=== PATIENT | female | born 1955 | race Two or more races ===

== ENCOUNTER 2017-01-03 11:26 | Inpatient (IN) | payer BC ==
[~2017-01-03] VITALS: Ht 160 cm; Wt 77.8 kg
[~2017-01-03 11:26] MED LIST: AMLO10TA2 PO; ASPI81CH43 PO; ATOR80TA PO; CITA-77 PO; DOXA1TAB42; FENO48TA6 PO; FURO40TA4; GABA300C8 PO; Glyburide; LISI-646; METO25TA62; PANTOPRAZOLE
[2017-01-03 12:03] LABS: Basophils # (auto) 0 uL; Basophils % (auto) 0.4 % (0.0-2.0); Eosinophils # (auto) 0.1 uL; Eosinophils % (auto) 1.3 % (0.0-7.0); Hematocrit 29.3 % (36.0-46.0); Hemoglobin 9.6 g/dL (12.2-16.2); Lymphocytes # (auto) 1.2 uL; Lymphocytes % (auto) 9.7 % (10.0-50.0); Mean Corpuscular Hemoglobin 28.9 pg (28.0-32.0); Mean Corpuscular Hgb Conc. 32.7 g/dL (32.0-36.0); Mean Corpuscular Volume 88.4 fL (80.0-100.0); Mean Platelet Volume 6.7 fL (7.4-10.4); Monocytes # (auto) 0.7 uL; Neutrophils # (auto) 9.8 uL; Neutrophils % (auto) 82.6 % (37.0-80.0); Platelet Count (auto) 223 10^3/uL (140-450); Red Cell Distribution Width 17.4 % (11.6-16.0); White Blood Cell 11.9 10^3/uL (4.4-10.8)
[2017-01-03 12:24] LABS: Albumin 2.9 g/dL (3.4-5.0); BUN/Creatinine Ratio 6.1; Bilirubin, Total 0.5 mg/dL (0.2-1.0); Calcium 9.1 mg/dL (8.5-10.1); Magnesium 2.3 mg/dL (1.6-2.6); Potassium 4.5 mmol/L (3.5-5.1); Total Protein 6.8 g/dL (6.4-8.2)
[2017-01-03 13:20] LABS: B-Type Natriuretic Peptide 3946.46 pg/mL (0-100)
[2017-01-03 13:21] LABS: Temperature: 22.7 C (20.0-25.0)
[2017-01-03] MEDS ORDERED: ALBUTEROL SULF 2.5 MG/0.5ML(0.5%) NEB SOLN NEB PRN (13:30)
[2017-01-03] MEDS ORDERED: ACETAMINOPHEN 500 MG TAB PO PRN (13:30)
[2017-01-03] MEDS ORDERED: hydrALAZINE HCL 20 MG/ML VL IV PRN (13:30)
[2017-01-03] MEDS ORDERED: MORPHINE SULF INJ 2 MG/ML SYRINGE 1ML IV PRN (13:30)
[2017-01-03] MEDS ORDERED: TEMAZEPAM 15 MG CAP PO PRN (13:30)
[2017-01-03] MEDS ORDERED: DEXTROSE (50%) 50ML SYRG IV PRN (13:30)
[2017-01-03] MEDS ORDERED: LACTULOSE 20Gm/30ML SOLN PO PRN (13:30)
[2017-01-03] MEDS ORDERED: PROCHLORPERAZINE EDISYLATE 5 MG/ML 2ML VIAL IV PRN (13:30)
[2017-01-03] MEDS ORDERED: NITROGLYCERIN 0.4 MG SL TAB SL PRN (13:30)
[2017-01-03] MEDS ORDERED: LORazepam 0.5 MG TAB PO PRN (13:30)
[2017-01-03] MEDS ORDERED: LISINOPRIL 20 MG TAB PO ONE (13:45)
[2017-01-03] MEDS ORDERED: hydrALAZINE HCL 20 MG/ML VL IV ONE (13:45)
[2017-01-03] MEDS ORDERED: ASPirin 81 mg TAB PO ONE (13:45)
[2017-01-03] MEDS ORDERED: amLODIPine BESYLATE 5 MG TAB PO ONE (13:45)
[2017-01-03] MEDS ORDERED: METOPROLOL TARTRATE 25 MG TAB PO ONE (13:45)
[2017-01-03] MEDS ORDERED: METOPROLOL TARTRATE 50 MG TAB PO ONE (13:45)
[2017-01-03] MEDS ORDERED: cloNIDine HCL 0.1 MG TAB PO ONE (13:45)
[2017-01-03] MEDS: cefTRIAXone 1GM/50ML D5W 50 ML IV SCH (13:54)
[2017-01-03] MEDS: ENOXAPARIN SOD 30 MG/0.3 ML SYRINGE SC SCH (13:55)
[2017-01-03] MEDS: NITROGLYCERIN 0.2MG/HR TOPICAL PATCH TD SCH (13:56)
[2017-01-03] MEDS ORDERED: GABAPENTIN 300 MG CAP PO SCH (14:00)
[2017-01-03] MEDS ORDERED: FUROSEMIDE 40 MG/4 ML VIAL IV SCH (14:00)
[2017-01-03] MEDS: NITROGLYCERIN 50MG/250ML 250 ML IV SCH ×2 (14:30→14:45)
[2017-01-03] MEDS ORDERED: NITROGLYCERIN 50MG/250ML 250 ML IV ONE (14:30)
[2017-01-03] MEDS ORDERED: NITROGLYCERIN 0.4 MG SL TAB SL ONE (14:30)
[2017-01-03] MEDS: AZITHROMYCIN 500MG/D5W 250ML 250 ML IV SCH (14:56)
[2017-01-03] MEDS: MORPHINE SULF INJ 2 MG/ML SYRINGE 1ML IV PRN (15:22)
[2017-01-03] MEDS ORDERED: EPOETIN ALFA 3,000 UNIT/1 ML VIAL SC ONE (16:00)
[2017-01-03] MEDS ORDERED: EPOETIN ALFA 3,000 UNIT/1 ML VIAL ONE (16:23)
[2017-01-03] MEDS ORDERED: EPOETIN ALFA 2,000 UNIT/1 ML VIAL ONE (16:23)
[2017-01-03] MEDS ORDERED: SODIUM CHL 0.9% 1000 ML BAG XX ONE (17:00)
[2017-01-03] MEDS ORDERED: EPOETIN ALFA 10,000 UNIT/1 ML VIAL IV ONE (17:00)
[2017-01-03] MEDS: InsuLIN REG 1unit/0.01ml Soln (100units/ml) SC SCH ×2 (17:00→23:07)
[2017-01-03] MEDS: ACCU-CHEK COMFORT CURVE STRIP VI SCH ×2 (17:10→23:08)
[2017-01-03] MEDS: IPRATROPIUM BROM 0.5 MG/2.5ML INH SOL NEB SCH (18:00)
[2017-01-03] MEDS: ALBUTEROL SULF 2.5 MG/0.5ML(0.5%) NEB SOLN NEB SCH (18:00)
[2017-01-03 19:58] VITALS: BP 183/80
[2017-01-03] MEDS: ATORVASTATIN 20 MG TAB PO SCH (23:20)
[2017-01-03] MEDS: DOXAZOSIN MESYL 2 MG TAB PO SCH (23:25)
[2017-01-03] MEDS: METOPROLOL TARTRATE 25 MG TAB PO SCH (23:25)
[2017-01-03] MEDS: TEMAZEPAM 15 MG CAP PO PRN (23:30)
[2017-01-04] VITALS (63 sets, daily range): BP systolic 141–217; BP diastolic 52–106
[2017-01-04] MEDS: HYDROcodone-ACET 5/325MG TAB PO PRN ×3 (02:55→18:22)
[2017-01-04 05:58] LABS: Basophils # (auto) 0 uL; Basophils % (auto) 0.7 % (0.0-2.0); DEFINITIVE VIEW TRANSMISSION; Eosinophils # (auto) 0.1 uL; Eosinophils % (auto) 1.4 % (0.0-7.0); Hematocrit 24.7 % (36.0-46.0); Lymphocytes # (auto) 1.1 uL; Mean Corpuscular Hgb Conc. 32.5 g/dL (32.0-36.0); Mean Platelet Volume 6.9 fL (7.4-10.4); Monocytes # (auto) 0.7 uL; Monocytes % (auto) 11.2 % (0.0-12.0); Neutrophils # (auto) 4.1 uL; Neutrophils % (auto) 68.7 % (37.0-80.0); Platelet Count (auto) 174 10^3/uL (140-450); Red Cell Distribution Width 17.5 % (11.6-16.0); White Blood Cell 5.9 10^3/uL (4.4-10.8)
[2017-01-04] MEDS: InsuLIN REG 1unit/0.01ml Soln (100units/ml) SC SCH ×4 (06:39→21:08)
[2017-01-04] MEDS: LISINOPRIL 20 MG TAB PO SCH (06:40)
[2017-01-04] MEDS: ACCU-CHEK COMFORT CURVE STRIP VI SCH ×4 (06:40→21:09)
[2017-01-04 06:45] LABS: Albumin 2.5 g/dL (3.4-5.0); BUN/Creatinine Ratio 5.2; Bilirubin, Total 0.6 mg/dL (0.2-1.0); Calcium 8.2 mg/dL (8.5-10.1); Potassium 3.9 mmol/L (3.5-5.1); Total Protein 5.8 g/dL (6.4-8.2)
[2017-01-04] MEDS: ALBUTEROL SULF 2.5 MG/0.5ML(0.5%) NEB SOLN NEB SCH ×3 (06:55→19:18)
[2017-01-04] MEDS: IPRATROPIUM BROM 0.5 MG/2.5ML INH SOL NEB SCH ×3 (06:56→19:18)
[2017-01-04] MEDS: cefTRIAXone 1GM/50ML D5W 50 ML IV SCH (09:22)
[2017-01-04] MEDS: NITROGLYCERIN 50MG/250ML 250 ML IV SCH ×2 (09:47→23:50)
[2017-01-04] MEDS: ENOXAPARIN SOD 30 MG/0.3 ML SYRINGE SC SCH (10:00)
[2017-01-04] MEDS ORDERED: ASPirin 81 mg TAB PO SCH (10:00)
[2017-01-04] MEDS ORDERED: PANTOPRAZOLE 40 MG TAB PO SCH (10:00)
[2017-01-04] MEDS ORDERED: hydrALAZINE HCL 25 MG TAB PO PRN (10:15)
[2017-01-04] MEDS: GABAPENTIN 300 MG CAP PO SCH (10:23)
[2017-01-04] MEDS: ASPirin 81 mg TAB PO SCH (10:23)
[2017-01-04] MEDS: CITALOPRAM HYDROBR 20 MG TAB PO SCH (10:23)
[2017-01-04] MEDS: NITROGLYCERIN 0.2MG/HR TOPICAL PATCH TD SCH (10:23)
[2017-01-04] MEDS: amLODIPine BESYLATE 5 MG TAB PO SCH (10:24)
[2017-01-04] MEDS: METOPROLOL TARTRATE 25 MG TAB PO SCH ×2 (10:24→21:08)
[2017-01-04] MEDS: AZITHROMYCIN 500MG/D5W 250ML 250 ML IV SCH (11:34)
[2017-01-04] MEDS: hydrALAZINE HCL 25 MG TAB PO SCH ×3 (12:11→23:40)
[2017-01-04] MEDS ORDERED: SODIUM CHLORIDE 0.9 % NEB SOLN 3ML NEB ONE (13:18)
[2017-01-04] MEDS ORDERED: CARV25TA55 PO (16:09)
[2017-01-04] MEDS ORDERED: LOSA100T27 PO (16:09)
[2017-01-04] MEDS ORDERED: CLO01T PO (16:09)
[2017-01-04] MEDS ORDERED: CALC0.25 PO (16:09)
[2017-01-04] MEDS ORDERED: POTA10TA79 PO (16:09)
[2017-01-04] MEDS ORDERED: MET50T PO (16:09)
[2017-01-04] MEDS ORDERED: HYDR-3682 PO (16:09)
[2017-01-04] MEDS ORDERED: HYDR-2652 PO (16:09)
[2017-01-04] MEDS ORDERED: NIFE90TA30 PO (16:09)
[2017-01-04] MEDS ORDERED: FURO80TA3 PO (16:09)
[2017-01-04] MEDS ORDERED: PRED1PAK10 PO (16:09)
[2017-01-04] MEDS: DOXAZOSIN MESYL 2 MG TAB PO SCH (21:08)
[2017-01-04] MEDS: ATORVASTATIN 20 MG TAB PO SCH (21:08)
[2017-01-04] MEDS: metroNIDAZOLE 500 MG TAB PO SCH (21:08)
[2017-01-04] MEDS: diphenhdrAMINE HCL 50 MG/1 ML VL IV PRN (22:10)
[2017-01-04] MEDS: TEMAZEPAM 15 MG CAP PO PRN (22:11)
[2017-01-05] VITALS (94 sets, daily range): BP systolic 87–193; BP diastolic 23–123
[2017-01-05] MEDS: ALBUTEROL SULF 2.5 MG/0.5ML(0.5%) NEB SOLN NEB SCH ×4 (00:31→18:35)
[2017-01-05] MEDS: IPRATROPIUM BROM 0.5 MG/2.5ML INH SOL NEB SCH ×4 (00:31→18:35)
[2017-01-05] MEDS: MORPHINE SULF INJ 2 MG/ML SYRINGE 1ML IV PRN ×3 (01:06→23:16)
[2017-01-05 04:25] LABS: Basophils # (auto) 0 uL; Basophils % (auto) 0.5 % (0.0-2.0); DEFINITIVE VIEW TRANSMISSION; Eosinophils # (auto) 0.5 uL; Eosinophils % (auto) 6.2 % (0.0-7.0); Hematocrit 23.2 % (36.0-46.0); Hemoglobin 7.5 g/dL (12.2-16.2); Lymphocytes # (auto) 1.7 uL; Lymphocytes % (auto) 21.3 % (10.0-50.0); Mean Corpuscular Hemoglobin 28.7 pg (28.0-32.0); Mean Corpuscular Hgb Conc. 32.5 g/dL (32.0-36.0); Mean Corpuscular Volume 88.2 fL (80.0-100.0); Mean Platelet Volume 7.6 fL (7.4-10.4); Monocytes # (auto) 0.9 uL; Monocytes % (auto) 11.4 % (0.0-12.0); Neutrophils # (auto) 4.9 uL; Neutrophils % (auto) 60.6 % (37.0-80.0); Platelet Count (auto) 180 10^3/uL (140-450); Red Cell Distribution Width 16.9 % (11.6-16.0); White Blood Cell 8.1 10^3/uL (4.4-10.8)
[2017-01-05 04:27] LABS: BUN/Creatinine Ratio 6.6; Potassium 3.8 mmol/L (3.5-5.1)
[2017-01-05] MEDS: InsuLIN REG 1unit/0.01ml Soln (100units/ml) SC SCH ×4 (05:27→22:00)
[2017-01-05] MEDS: ACCU-CHEK COMFORT CURVE STRIP VI SCH ×4 (05:27→22:28)
[2017-01-05] MEDS: hydrALAZINE HCL 25 MG TAB PO SCH ×3 (06:23→17:02)
[2017-01-05] MEDS: LISINOPRIL 20 MG TAB PO SCH (06:23)
[2017-01-05] MEDS: metroNIDAZOLE 500 MG TAB PO SCH ×3 (06:23→22:00)
[2017-01-05] MEDS: cefTRIAXone 1GM/50ML D5W 50 ML IV SCH (08:33)
[2017-01-05] MEDS: AZITHROMYCIN 500MG/D5W 250ML 250 ML IV SCH (09:30)
[2017-01-05] MEDS: ASPirin 81 mg TAB PO SCH (09:30)
[2017-01-05] MEDS: ENOXAPARIN SOD 30 MG/0.3 ML SYRINGE SC SCH (09:30)
[2017-01-05] MEDS: amLODIPine BESYLATE 5 MG TAB PO SCH (09:31)
[2017-01-05] MEDS: GABAPENTIN 300 MG CAP PO SCH (09:31)
[2017-01-05] MEDS: METOPROLOL TARTRATE 25 MG TAB PO SCH ×3 (09:32→23:28)
[2017-01-05] MEDS: CITALOPRAM HYDROBR 20 MG TAB PO SCH (09:32)
[2017-01-05] MEDS: NITROGLYCERIN 0.2MG/HR TOPICAL PATCH TD SCH (09:52)
[2017-01-05] MEDS: HYDROcodone-ACET 5/325MG TAB PO PRN ×2 (16:28)
[2017-01-05] MEDS ORDERED: ASCORBIC ACID 500 MG TAB PO ONE (16:30)
[2017-01-05] MEDS ORDERED: B-COMPLEX W/ C & FOLIC ACID(NEPHROVITE TAB) PO ONE (16:30)
[2017-01-05] MEDS: PRO-STAT 64 30ML PO SCH (17:45)
[2017-01-05] MEDS: ATORVASTATIN 20 MG TAB PO SCH (22:27)
[2017-01-05] MEDS: DOXAZOSIN MESYL 2 MG TAB PO SCH (22:27)
[2017-01-06] VITALS (88 sets, daily range): BP systolic 113–191; BP diastolic 50–106
[2017-01-06] MEDS: NITROGLYCERIN 50MG/250ML 250 ML IV SCH ×3 (00:44→22:14)
[2017-01-06] MEDS: ALBUTEROL SULF 2.5 MG/0.5ML(0.5%) NEB SOLN NEB SCH ×4 (00:48→19:01)
[2017-01-06] MEDS: IPRATROPIUM BROM 0.5 MG/2.5ML INH SOL NEB SCH ×4 (00:48→19:01)
[2017-01-06 04:24] LABS: Basophils # (auto) 0.1 uL; Basophils % (auto) 0.5 % (0.0-2.0); DEFINITIVE VIEW TRANSMISSION; Eosinophils # (auto) 1.4 uL; Eosinophils % (auto) 14.8 % (0.0-7.0); Hematocrit 23.3 % (36.0-46.0); Hemoglobin 7.5 g/dL (12.2-16.2); Lymphocytes # (auto) 1.5 uL; Lymphocytes % (auto) 15.3 % (10.0-50.0); Mean Corpuscular Hemoglobin 28.5 pg (28.0-32.0); Mean Corpuscular Hgb Conc. 32.2 g/dL (32.0-36.0); Mean Corpuscular Volume 88.5 fL (80.0-100.0); Mean Platelet Volume 7.8 fL (7.4-10.4); Monocytes # (auto) 0.9 uL; Neutrophils # (auto) 5.9 uL; Neutrophils % (auto) 60.4 % (37.0-80.0); Platelet Count (auto) 179 10^3/uL (140-450); Red Cell Distribution Width 16.4 % (11.6-16.0); White Blood Cell 9.8 10^3/uL (4.4-10.8)
[2017-01-06 04:43] LABS: Potassium 4.3 mmol/L (3.5-5.1)
[2017-01-06 04:49] LABS: Calcium 8.1 mg/dL (8.5-10.1)
[2017-01-06] MEDS: LISINOPRIL 20 MG TAB PO SCH (05:51)
[2017-01-06] MEDS: metroNIDAZOLE 500 MG TAB PO SCH ×3 (05:51→21:53)
[2017-01-06] MEDS: hydrALAZINE HCL 25 MG TAB PO SCH ×5 (06:57→22:25)
[2017-01-06] MEDS: InsuLIN REG 1unit/0.01ml Soln (100units/ml) SC SCH ×4 (07:00→22:08)
[2017-01-06] MEDS: ACCU-CHEK COMFORT CURVE STRIP VI SCH ×4 (07:21→22:04)
[2017-01-06] MEDS ORDERED: EPOETIN ALFA 10,000 UNIT/1 ML VIAL IV ONE (08:00)
[2017-01-06] MEDS ORDERED: SODIUM CHL 0.9% 1000 ML BAG XX ONE (08:00)
[2017-01-06] MEDS: PRO-STAT 64 30ML PO SCH ×2 (08:26→17:46)
[2017-01-06] MEDS: ENOXAPARIN SOD 30 MG/0.3 ML SYRINGE SC SCH (09:24)
[2017-01-06] MEDS: ASPirin 81 mg TAB PO SCH (09:25)
[2017-01-06] MEDS: HYDROcodone-ACET 5/325MG TAB PO PRN (09:25)
[2017-01-06] MEDS: B-COMPLEX W/ C & FOLIC ACID(NEPHROVITE TAB) PO SCH (09:25)
[2017-01-06] MEDS: CITALOPRAM HYDROBR 20 MG TAB PO SCH (09:25)
[2017-01-06] MEDS: GABAPENTIN 300 MG CAP PO SCH (09:26)
[2017-01-06] MEDS: ASCORBIC ACID 500 MG TAB PO SCH (09:26)
[2017-01-06] MEDS: AMOXICILLIN/CLAVULAN 500 MG TAB PO SCH ×2 (10:00→21:53)
[2017-01-06] MEDS ORDERED: AMOXICILLIN/CLAVUL 875 MG TAB PO SCH (10:00)
[2017-01-06] MEDS: AZITHROMYCIN 250 MG TAB PO SCH (10:00)
[2017-01-06] MEDS: amLODIPine BESYLATE 5 MG TAB PO SCH (10:00)
[2017-01-06] MEDS: MORPHINE SULF INJ 2 MG/ML SYRINGE 1ML IV PRN ×2 (15:56→21:55)
[2017-01-06] MEDS: ATORVASTATIN 20 MG TAB PO SCH (21:52)
[2017-01-06] MEDS: METOPROLOL TARTRATE 25 MG TAB PO SCH (21:53)
[2017-01-06] MEDS: diphenhdrAMINE HCL 50 MG/1 ML VL IV PRN (21:56)
[2017-01-06] MEDS: DOXAZOSIN MESYL 2 MG TAB PO SCH (22:28)
[2017-01-07] VITALS (57 sets, daily range): BP systolic 83–185; BP diastolic 35–123
[2017-01-07] MEDS: HYDROcodone-ACET 5/325MG TAB PO PRN ×4 (00:43→22:22)
[2017-01-07] MEDS: TEMAZEPAM 15 MG CAP PO PRN (01:30)
[2017-01-07 03:53] LABS: DEFINITIVE VIEW TRANSMISSION; Hematocrit 27.4 % (36.0-46.0); Mean Corpuscular Hemoglobin 29.1 pg (28.0-32.0); Mean Corpuscular Hgb Conc. 32.9 g/dL (32.0-36.0); Mean Corpuscular Volume 88.4 fL (80.0-100.0); Mean Platelet Volume 7.7 fL (7.4-10.4); Platelet Count (auto) 189 10^3/uL (140-450); Red Cell Distribution Width 16.1 % (11.6-16.0); White Blood Cell 11.6 10^3/uL (4.4-10.8)
[2017-01-07 04:02] LABS: BUN/Creatinine Ratio 6.3; Potassium 4.4 mmol/L (3.5-5.1)
[2017-01-07 04:13] LABS: Metamyelocytes % 0; Myelocytes % 0; Promyelocytes % 0; Reactive Lymphocytes 0
[2017-01-07 04:38] LABS: Hypersegmented Neutrophils Present; Platelet Estimate Adequate; RBC Morphology Normal
[2017-01-07] MEDS: metroNIDAZOLE 500 MG TAB PO SCH ×3 (06:00→21:42)
[2017-01-07] MEDS: hydrALAZINE HCL 25 MG TAB PO SCH ×3 (06:00→17:40)
[2017-01-07] MEDS: ALBUTEROL SULF 2.5 MG/0.5ML(0.5%) NEB SOLN NEB SCH ×2 (06:30)
[2017-01-07] MEDS: IPRATROPIUM BROM 0.5 MG/2.5ML INH SOL NEB SCH ×2 (06:30)
[2017-01-07] MEDS: InsuLIN REG 1unit/0.01ml Soln (100units/ml) SC SCH ×4 (07:00→22:13)
[2017-01-07] MEDS: ACCU-CHEK COMFORT CURVE STRIP VI SCH ×4 (07:05→22:11)
[2017-01-07] MEDS: LISINOPRIL 20 MG TAB PO SCH (07:12)
[2017-01-07] MEDS: PRO-STAT 64 30ML PO SCH ×2 (09:01→17:38)
[2017-01-07] MEDS: CITALOPRAM HYDROBR 20 MG TAB PO SCH (10:08)
[2017-01-07] MEDS: B-COMPLEX W/ C & FOLIC ACID(NEPHROVITE TAB) PO SCH (10:08)
[2017-01-07] MEDS: ASPirin 81 mg TAB PO SCH (10:08)
[2017-01-07] MEDS: GABAPENTIN 300 MG CAP PO SCH (10:08)
[2017-01-07] MEDS: METOPROLOL TARTRATE 25 MG TAB PO SCH ×2 (10:09→22:14)
[2017-01-07] MEDS: ASCORBIC ACID 500 MG TAB PO SCH (10:09)
[2017-01-07] MEDS: AZITHROMYCIN 250 MG TAB PO SCH (10:09)
[2017-01-07] MEDS: amLODIPine BESYLATE 5 MG TAB PO SCH (10:10)
[2017-01-07] MEDS: ENOXAPARIN SOD 30 MG/0.3 ML SYRINGE SC SCH (10:10)
[2017-01-07] MEDS: AMOXICILLIN/CLAVULAN 500 MG TAB PO SCH ×2 (10:11→22:37)
[2017-01-07] MEDS ORDERED: [UNRECOGNIZED DRUG - OTHER] TOP SCH (12:00)
[2017-01-07] MEDS: NEOMYCIN-BACITRACIN-POLYM UNITDOSE PKG TOP OINT TOP SCH ×2 (13:21→17:56)
[2017-01-07] MEDS: HYDROCORTONE 1% TOPICAL CREAM 30 GM TUBE TOP SCH ×2 (13:21→17:39)
[2017-01-07] MEDS: LABETALOL HCL 5 MG/ML 4ML SYRINGE IV PRN (14:31)
[2017-01-07] MEDS: MORPHINE SULF INJ 2 MG/ML SYRINGE 1ML IV PRN (14:34)
[2017-01-07] MEDS ORDERED: diphenhdrAMINE HCL 25 MG CAP PO ONE (21:00)
[2017-01-07] MEDS: DOXAZOSIN MESYL 2 MG TAB PO SCH (21:42)
[2017-01-07] MEDS: ATORVASTATIN 20 MG TAB PO SCH (21:42)
[2017-01-08] MEDS: HYDROCORTONE 1% TOPICAL CREAM 30 GM TUBE TOP SCH ×4 (00:13→17:34)
[2017-01-08] MEDS: NEOMYCIN-BACITRACIN-POLYM UNITDOSE PKG TOP OINT TOP SCH ×4 (00:13→17:35)
[2017-01-08] MEDS: hydrALAZINE HCL 25 MG TAB PO SCH ×4 (00:13→17:34)
[2017-01-08 05:00] VITALS: BP 167/79
[2017-01-08] MEDS: LABETALOL HCL 5 MG/ML 4ML SYRINGE IV PRN (05:55)
[2017-01-08] MEDS: MORPHINE SULF INJ 2 MG/ML SYRINGE 1ML IV PRN ×3 (05:56→17:00)
[2017-01-08] MEDS: metroNIDAZOLE 500 MG TAB PO SCH ×3 (05:57→21:42)
[2017-01-08 05:59] LABS: DEFINITIVE VIEW TRANSMISSION; Hematocrit 30.5 % (36.0-46.0); Hemoglobin 9.9 g/dL (12.2-16.2); Mean Corpuscular Hgb Conc. 32.5 g/dL (32.0-36.0); Mean Corpuscular Volume 89.1 fL (80.0-100.0); Mean Platelet Volume 7.9 fL (7.4-10.4); Platelet Count (auto) 214 10^3/uL (140-450); Red Cell Distribution Width 16.6 % (11.6-16.0); White Blood Cell 10.5 10^3/uL (4.4-10.8)
[2017-01-08 06:02] LABS: Metamyelocytes % 0; Myelocytes % 0; Promyelocytes % 0; Reactive Lymphocytes 0
[2017-01-08 06:26] LABS: Potassium 4.6 mmol/L (3.5-5.1)
[2017-01-08 06:30] LABS: BUN/Creatinine Ratio 6.3; Calcium 8.6 mg/dL (8.5-10.1)
[2017-01-08 06:38] LABS: Hypersegmented Neutrophils Present; Platelet Estimate Adequate
[2017-01-08 06:39] LABS: RBC Morphology Normal
[2017-01-08] MEDS: ACCU-CHEK COMFORT CURVE STRIP VI SCH ×4 (06:43→22:00)
[2017-01-08] MEDS: InsuLIN REG 1unit/0.01ml Soln (100units/ml) SC SCH ×4 (06:43→22:39)
[2017-01-08] MEDS ORDERED: LISINOPRIL 20 MG TAB PO SCH (07:00)
[2017-01-08 08:00] VITALS: BP 174/72
[2017-01-08] MEDS ORDERED: EPOETIN ALFA 10,000 UNIT/1 ML VIAL IV ONE (08:00)
[2017-01-08] MEDS: PRO-STAT 64 30ML PO SCH ×2 (08:00→17:34)
[2017-01-08] MEDS ORDERED: SODIUM CHL 0.9% 1000 ML BAG XX ONE (08:00)
[2017-01-08] MEDS: HYDROcodone-ACET 5/325MG TAB PO PRN (08:03)
[2017-01-08] MEDS ORDERED: ZOLPIDEM TARTRATE 5 MG TAB PO ONE (09:00)
[2017-01-08] MEDS ORDERED: ZOLPIDEM TARTRATE 5 MG TAB PO PRN (09:00)
[2017-01-08] MEDS: LABETALOL HCL 200 MG TAB PO SCH ×2 (09:40→21:42)
[2017-01-08] MEDS: AMOXICILLIN/CLAVULAN 500 MG TAB PO SCH ×2 (09:41→22:38)
[2017-01-08] MEDS: ASPirin 81 mg TAB PO SCH (09:41)
[2017-01-08] MEDS: amLODIPine BESYLATE 5 MG TAB PO SCH (09:41)
[2017-01-08] MEDS: ASCORBIC ACID 500 MG TAB PO SCH (09:41)
[2017-01-08] MEDS: CITALOPRAM HYDROBR 20 MG TAB PO SCH (09:41)
[2017-01-08] MEDS: B-COMPLEX W/ C & FOLIC ACID(NEPHROVITE TAB) PO SCH (09:41)
[2017-01-08] MEDS: GABAPENTIN 300 MG CAP PO SCH (09:41)
[2017-01-08] MEDS: AZITHROMYCIN 250 MG TAB PO SCH (09:42)
[2017-01-08] MEDS: ENOXAPARIN SOD 30 MG/0.3 ML SYRINGE SC SCH (09:42)
[2017-01-08 11:14] VITALS: BP 157/71
[2017-01-08 12:58] VITALS: BP 157/71
[2017-01-08 18:00] VITALS: BP 163/75
[2017-01-08] MEDS: ATORVASTATIN 20 MG TAB PO SCH (21:41)
[2017-01-08] MEDS: OXYCODONE W/ ACETAMINOPHEN 5/325MG TABLET PO PRN (21:43)
[2017-01-08 23:18] VITALS: BP 165/71
[2017-01-09] MEDS: HYDROCORTONE 1% TOPICAL CREAM 30 GM TUBE TOP SCH ×2 (00:47→05:46)
[2017-01-09] MEDS: NEOMYCIN-BACITRACIN-POLYM UNITDOSE PKG TOP OINT TOP SCH ×2 (00:47→05:47)
[2017-01-09] MEDS: hydrALAZINE HCL 25 MG TAB PO SCH ×2 (03:19→05:46)
[2017-01-09 05:15] VITALS: BP 176/77
[2017-01-09] MEDS: OXYCODONE W/ ACETAMINOPHEN 5/325MG TABLET PO PRN ×2 (05:45→10:35)
[2017-01-09] MEDS: metroNIDAZOLE 500 MG TAB PO SCH (05:46)
[2017-01-09] MEDS: ACCU-CHEK COMFORT CURVE STRIP VI SCH (05:52)
[2017-01-09] MEDS: InsuLIN REG 1unit/0.01ml Soln (100units/ml) SC SCH (05:52)
[2017-01-09 09:00] VITALS: BP 169/72
[2017-01-09] MEDS ORDERED: MET500T PO (09:06)
[2017-01-09] MEDS ORDERED: LAB200T PO (09:06)
[2017-01-09] MEDS: ENOXAPARIN SOD 30 MG/0.3 ML SYRINGE SC SCH (09:58)
[2017-01-09] MEDS: GABAPENTIN 300 MG CAP PO SCH (09:58)
[2017-01-09] MEDS ORDERED: NIFEdipine ER 30 MG TAB PO SCH (10:00)
[2017-01-09] MEDS: LABETALOL HCL 200 MG TAB PO SCH (10:02)
[2017-01-09] MEDS: AZITHROMYCIN 250 MG TAB PO SCH (10:02)
[2017-01-09] MEDS: CITALOPRAM HYDROBR 20 MG TAB PO SCH (10:02)
[2017-01-09] MEDS: ASPirin 81 mg TAB PO SCH (10:03)
[2017-01-09] MEDS: B-COMPLEX W/ C & FOLIC ACID(NEPHROVITE TAB) PO SCH (10:03)
[2017-01-09] MEDS: AMOXICILLIN/CLAVULAN 500 MG TAB PO SCH (10:35)
[2017-01-09] MEDS: ASCORBIC ACID 500 MG TAB PO SCH (10:35)
[2017-01-09] MEDS ORDERED: hydrALAZINE HCL 25 MG TAB PO SCH (12:00)
[2017-01-09] MEDS ORDERED: cloNIDine HCL 0.1 MG TAB PO SCH (14:00)
[2017-01-09] MEDS ORDERED: amLODIPine BESYLATE 5 MG TAB PO SCH (18:00)
== END 2017-01-09 12:45 | disposition home or self-care (01) | DRG 304 ==
LOC: EDBD 11:26 → ER 11:31 → TELE 11:32 → ICU WEST 01-04 08:49 → TELE-WESTW 01-07 17:40
PROVIDERS: ADMIT Internal Medicine; ATTEND Internal Medicine
PROC: 5A1D60Z (ICD-10-PCS; principal; 2017-01-03)
PROC: 5A09357 Assistance with Respiratory Ventilation, Less than 24 Consecutive Hours, Continuous Positive Airway Pressure (ICD-10-PCS; 2017-01-03)
PROC: 30233N1 Transfusion of Nonautologous Red Blood Cells into Peripheral Vein, Percutaneous Approach (ICD-10-PCS; 2017-01-06)
DX: I16.9 Hypertensive crisis, unspecified (principal); I50.33 Acute on chronic diastolic (congestive) heart failure; N18.6 End stage renal disease; J96.01 Acute respiratory failure with hypoxia; E43 Unspecified severe protein-calorie malnutrition; J18.9 Pneumonia, unspecified organism; A04.7 Enterocolitis due to Clostridium difficile; N25.81 Secondary hyperparathyroidism of renal origin; I13.2 Hypertensive heart and chronic kidney disease with heart failure and with stage 5 chronic kidney disease, or end stage renal disease; D63.8 Anemia in other chronic diseases classified elsewhere; E11.21 Type 2 diabetes mellitus with diabetic nephropathy; E11.22 Type 2 diabetes mellitus with diabetic chronic kidney disease; E78.5 Hyperlipidemia, unspecified; R21 Rash and other nonspecific skin eruption; L30.9 Dermatitis, unspecified; I25.10 Atherosclerotic heart disease of native coronary artery without angina pectoris; Z82.49 Family history of ischemic heart disease and other diseases of the circulatory system; Z83.3 Family history of diabetes mellitus; Z95.5 Presence of coronary angioplasty implant and graft; Z99.2 Dependence on renal dialysis; Z98.51 Tubal ligation status; Z90.49 Acquired absence of other specified parts of digestive tract; I25.2 Old myocardial infarction; Z83.6 Family history of other diseases of the respiratory system; Z79.899 Other long term (current) drug therapy; Z68.29 Body mass index [BMI] 29.0-29.9, adult
CPT/HCPCS: 36415; 36600; 71010; 71020; 80048; 80053; 80061; 82550; 82805; 82962; 83036; 83735; 83880; 84100; 84443; 84484; 85007; 85025; 85027; 85379; 85652; 86141; 86850; 86900; 86901; 86920; 87040; 87081; 87493; 90935; 93005; 93306; 93971; 94640; 96372; 96374; 96375; 99291; J0696; J0885; J1642; J1815; J3490; Q4081

== ENCOUNTER 2017-04-04 16:19 | Inpatient (IN) | payer BC, MEDICARE ==
[~2017-04-04] VITALS: Ht 160 cm; Wt 66.8 kg
[~2017-04-04 16:19] MED LIST changes: -AMLO10TA2 PO; +CALC0.25 PO; +CLO01T PO; -FURO40TA4; +FURO80TA3 PO; +GABA-497 PO; -GABA300C8 PO; +HYDR-2652 PO; +HYDR-3682 PO; +LAB200T PO; -LISI-646; +MET500T PO; -METO25TA62; +NIFE90TA30 PO; -PANTOPRAZOLE
[2017-04-04 17:24] LABS: Basophils # (auto) 0 uL; Basophils % (auto) 0.2 % (0.0-2.0); CONDITION Y; Eosinophils # (auto) 0.2 uL; Eosinophils % (auto) 2.4 % (0.0-7.0); Hematocrit 25.6 % (36.0-46.0); Hemoglobin 8.8 g/dL (12.2-16.2); Lymphocytes # (auto) 0.6 uL; Lymphocytes % (auto) 6.6 % (10.0-50.0); Mean Corpuscular Hemoglobin 30.5 pg (28.0-32.0); Mean Corpuscular Hgb Conc. 34.4 g/dL (32.0-36.0); Mean Corpuscular Volume 88.5 fL (80.0-100.0); Mean Platelet Volume 8.8 fL (7.4-10.4); Monocytes # (auto) 0.8 uL; Monocytes % (auto) 8.4 % (0.0-12.0); Neutrophils # (auto) 7.7 uL; Neutrophils % (auto) 82.4 % (37.0-80.0); Platelet Count (auto) 194 10^3/uL (140-450); White Blood Cell 9.4 10^3/uL (4.4-10.8)
[2017-04-04 17:37] LABS: INR 1.1 (0.9-1.15)
[2017-04-04 17:38] LABS: Albumin 2.6 g/dL (3.4-5.0); Alkaline Phosphatase 82 U/L (45-117); Anion Gap 12 (5-15); Aspartate Aminotransferase 35 U/L (15-37); BUN/Creatinine Ratio 8.5; Bilirubin, Total 0.6 mg/dL (0.2-1.0); Blood Urea Nitrogen 44 mg/dL (7-18); Carbon Dioxide 28 mmol/L (21-32); Chloride 96 mmol/L (98-107); GFR African American 11 mL/min; GFR Non-African American 9 mL/min; Glucose 249 mg/dL (74-106); Magnesium 2.1 mg/dL (1.6-2.6); Potassium 3.4 mmol/L (3.5-5.1); Sodium 136 mmol/L (136-145); Total Protein 6.8 g/dL (6.4-8.2)
[2017-04-04 18:00] LABS: B-Type Natriuretic Peptide 926.13 pg/mL (0-100)
[2017-04-04 18:07] LABS: Temperature: 22.9 C (20.0-25.0)
[2017-04-04] MEDS ORDERED: NITROGLYCERIN 0.4 MG SL TAB SL PRN (18:30)
[2017-04-04] MEDS ORDERED: LORazepam 0.5 MG TAB PO PRN (18:30)
[2017-04-04] MEDS ORDERED: ACETAMINOPHEN 500 MG TAB PO PRN (18:30)
[2017-04-04] MEDS ORDERED: DEXTROSE (50%) 50ML SYRG IV PRN (18:30)
[2017-04-04] MEDS ORDERED: PROMETHAZINE HCL 25 MG/ML 1ML IV PRN (18:30)
[2017-04-04] MEDS ORDERED: MORPHINE SULF INJ 2 MG/ML SYRINGE 1ML IV PRN (18:30)
[2017-04-04] MEDS: ENOXAPARIN SOD 30 MG/0.3 ML SYRINGE SC SCH (18:45)
[2017-04-04] MEDS ORDERED: ASPirin 81 mg TAB PO ONE (18:45)
[2017-04-04] MEDS: MORPHINE SULFATE 4 MG/ML SYRG IV PRN ×2 (18:49→23:16)
[2017-04-04] MEDS: GABAPENTIN 300 MG CAP PO SCH (18:49)
[2017-04-04] MEDS: FUROSEMIDE 40 MG TAB PO SCH (18:53)
[2017-04-04 21:30] VITALS: BP 166/68
[2017-04-04] MEDS: hydrALAZINE HCL 25 MG TAB PO SCH (21:57)
[2017-04-04] MEDS: DOXAZOSIN MESYL 2 MG TAB PO SCH (21:57)
[2017-04-04] MEDS: InsuLIN REG 1unit/0.01ml Soln (100units/ml) SC SCH (21:58)
[2017-04-04] MEDS: ACCU-CHEK COMFORT CURVE STRIP VI SCH (21:58)
[2017-04-04] MEDS: ATORVASTATIN 20 MG TAB PO SCH (21:58)
[2017-04-04] MEDS: cloNIDine HCL 0.1 MG TAB PO SCH (21:58)
[2017-04-04] MEDS: LABETALOL HCL 200 MG TAB PO SCH (21:58)
[2017-04-04] MEDS ORDERED: hydrOXYzine PAMOATE 25 MG CAP PO SCH (22:00)
[2017-04-04] MEDS ORDERED: Fenofibrate 48 MG TABLET PO SCH (22:00)
[2017-04-04] MEDS: hydrOXYzine PAMOATE 25 MG CAP PO SCH (22:21)
[2017-04-04] MEDS ORDERED: CAR125T PO (23:36)
[2017-04-04] MEDS ORDERED: CALC667T2 PO (23:36)
[2017-04-04] MEDS ORDERED: LORA-205 PO (23:36)
[2017-04-04] MEDS ORDERED: TRIO1TP EX (23:36)
[2017-04-04] MEDS ORDERED: HYDR-4663 PO (23:36)
[2017-04-04] MEDS ORDERED: SEVE800T8 PO (23:36)
[2017-04-04] MEDS ORDERED: LOSA100T27 PO (23:36)
[2017-04-05 02:16] VITALS: BP 166/88
[2017-04-05] MEDS: MORPHINE SULFATE 4 MG/ML SYRG IV PRN ×3 (04:54→18:34)
[2017-04-05 05:00] VITALS: BP 161/78
[2017-04-05] MEDS: hydrALAZINE HCL 25 MG TAB PO SCH ×3 (05:50→21:46)
[2017-04-05] MEDS: InsuLIN REG 1unit/0.01ml Soln (100units/ml) SC SCH ×2 (05:51→11:46)
[2017-04-05] MEDS: cloNIDine HCL 0.1 MG TAB PO SCH ×3 (05:51→21:47)
[2017-04-05] MEDS: ACCU-CHEK COMFORT CURVE STRIP VI SCH ×2 (05:51→11:45)
[2017-04-05] MEDS: FUROSEMIDE 40 MG TAB PO SCH (05:51)
[2017-04-05 06:23] LABS: Basophils # (auto) 0 uL; Basophils % (auto) 0.2 % (0.0-2.0); CONDITION Y; Eosinophils # (auto) 0.1 uL; Eosinophils % (auto) 1.1 % (0.0-7.0); Hematocrit 27.7 % (36.0-46.0); Hemoglobin 9.1 g/dL (12.2-16.2); Lymphocytes # (auto) 0.5 uL; Lymphocytes % (auto) 4.8 % (10.0-50.0); Mean Corpuscular Hemoglobin 29.7 pg (28.0-32.0); Mean Corpuscular Hgb Conc. 32.7 g/dL (32.0-36.0); Mean Corpuscular Volume 90.8 fL (80.0-100.0); Mean Platelet Volume 8.9 fL (7.4-10.4); Monocytes # (auto) 1.1 uL; Monocytes % (auto) 9.8 % (0.0-12.0); Neutrophils # (auto) 9.2 uL; Neutrophils % (auto) 84.1 % (37.0-80.0); Platelet Count (auto) 212 10^3/uL (140-450); Red Cell Distribution Width 16.3 % (11.6-16.0); White Blood Cell 10.9 10^3/uL (4.4-10.8)
[2017-04-05 06:48] LABS: Anion Gap 13 (5-15); Blood Urea Nitrogen 55 mg/dL (7-18); Calcium 8.5 mg/dL (8.5-10.1); Carbon Dioxide 26 mmol/L (21-32); Chloride 98 mmol/L (98-107); Glucose 89 mg/dL (74-106); Potassium 4.1 mmol/L (3.5-5.1); Sodium 137 mmol/L (136-145)
[2017-04-05 06:52] LABS: Albumin 2.6 g/dL (3.4-5.0); Aspartate Aminotransferase 35 U/L (15-37); BUN/Creatinine Ratio 9.1; GFR African American 9 mL/min; GFR Non-African American 8 mL/min
[2017-04-05 06:55] LABS: Alkaline Phosphatase 111 U/L (45-117); Bilirubin, Total 0.9 mg/dL (0.2-1.0); Total Protein 7.1 g/dL (6.4-8.2)
[2017-04-05 07:39] LABS: B-Type Natriuretic Peptide 1331.85 pg/mL (0-100)
[2017-04-05 07:41] LABS: Temperature: 22.7 C (20.0-25.0)
[2017-04-05 09:00] VITALS: BP 157/63
[2017-04-05] MEDS ORDERED: SODIUM CHL 0.9% 1000 ML BAG XX ONE (10:00)
[2017-04-05] MEDS: DOXAZOSIN MESYL 2 MG TAB PO SCH ×3 (10:00→21:47)
[2017-04-05] MEDS: LABETALOL HCL 200 MG TAB PO SCH ×3 (10:00→21:48)
[2017-04-05] MEDS ORDERED: EPOETIN ALFA 10,000 UNIT/1 ML VIAL IV ONE (10:00)
[2017-04-05] MEDS: NIFEdipine ER 30 MG TAB PO SCH ×2 (10:00→15:00)
[2017-04-05] MEDS: CITALOPRAM HYDROBR 20 MG TAB PO SCH (10:06)
[2017-04-05] MEDS: ASPirin 81 mg TAB PO SCH (10:06)
[2017-04-05] MEDS: CALCITRIOL 0.25 MCG CAP PO SCH (10:06)
[2017-04-05] MEDS: GABAPENTIN 300 MG CAP PO SCH (10:06)
[2017-04-05] MEDS: PANTOPRAZOLE 40 MG TAB PO SCH (10:06)
[2017-04-05] MEDS: hydrOXYzine PAMOATE 25 MG CAP PO SCH ×2 (10:07→21:48)
[2017-04-05] MEDS: NITROGLYCERIN 0.2MG/HR TOPICAL PATCH TD SCH (10:13)
[2017-04-05] MEDS: HYDROcodone-ACET 5/325MG TAB PO PRN (10:19)
[2017-04-05] MEDS ORDERED: VANCOMYCIN 1GM/250ML D5W 250 ML IV ONE (11:00)
[2017-04-05] MEDS: CALCIUM ACETATE 667 MG CAP PO SCH ×2 (12:13→17:40)
[2017-04-05 13:00] VITALS: BP 156/77
[2017-04-05 17:00] VITALS: BP 149/59
[2017-04-05] MEDS: ENOXAPARIN SOD 30 MG/0.3 ML SYRINGE SC SCH (17:40)
[2017-04-05] MEDS: HYDROmorphone HCL 2 MG/ML VL IV PRN (20:22)
[2017-04-05 21:30] VITALS: BP 141/66
[2017-04-05] MEDS: ATORVASTATIN 20 MG TAB PO SCH (21:47)
[2017-04-06] MEDS: HYDROmorphone HCL 2 MG/ML VL IV PRN ×2 (00:35→06:50)
[2017-04-06 05:00] VITALS: BP 124/59
[2017-04-06] MEDS: hydrALAZINE HCL 25 MG TAB PO SCH ×3 (06:15→21:45)
[2017-04-06] MEDS: cloNIDine HCL 0.1 MG TAB PO SCH ×3 (06:16→21:47)
[2017-04-06 07:48] LABS: Basophils # (auto) 0 uL; Basophils % (auto) 0.3 % (0.0-2.0); CONDITION Y; Eosinophils # (auto) 0 uL; Hematocrit 26.8 % (36.0-46.0); Hemoglobin 8.8 g/dL (12.2-16.2); Lymphocytes # (auto) 0.9 uL; Lymphocytes % (auto) 6.7 % (10.0-50.0); Mean Corpuscular Hemoglobin 29.6 pg (28.0-32.0); Mean Corpuscular Hgb Conc. 32.7 g/dL (32.0-36.0); Mean Corpuscular Volume 90.6 fL (80.0-100.0); Mean Platelet Volume 8.6 fL (7.4-10.4); Monocytes % (auto) 7.6 % (0.0-12.0); Neutrophils # (auto) 10.9 uL; Neutrophils % (auto) 85.4 % (37.0-80.0); Platelet Count (auto) 220 10^3/uL (140-450); Red Cell Distribution Width 16.8 % (11.6-16.0); White Blood Cell 12.8 10^3/uL (4.4-10.8)
[2017-04-06] MEDS: CALCIUM ACETATE 667 MG CAP PO SCH ×3 (08:08→17:33)
[2017-04-06 08:17] LABS: BUN/Creatinine Ratio 7.9; Calcium 8.7 mg/dL (8.5-10.1); Potassium 4.5 mmol/L (3.5-5.1)
[2017-04-06 09:00] VITALS: BP 121/57
[2017-04-06] MEDS: ASPirin 81 mg TAB PO SCH (09:56)
[2017-04-06] MEDS: CALCITRIOL 0.25 MCG CAP PO SCH (09:56)
[2017-04-06] MEDS: PANTOPRAZOLE 40 MG TAB PO SCH (09:56)
[2017-04-06] MEDS: GABAPENTIN 300 MG CAP PO SCH (09:56)
[2017-04-06] MEDS: hydrOXYzine PAMOATE 25 MG CAP PO SCH ×2 (09:57→21:48)
[2017-04-06] MEDS: CITALOPRAM HYDROBR 20 MG TAB PO SCH (09:57)
[2017-04-06] MEDS: NITROGLYCERIN 0.2MG/HR TOPICAL PATCH TD SCH (09:58)
[2017-04-06] MEDS: DOXAZOSIN MESYL 2 MG TAB PO SCH ×2 (09:59→21:46)
[2017-04-06] MEDS: LABETALOL HCL 200 MG TAB PO SCH ×2 (10:00→21:48)
[2017-04-06 13:00] VITALS: BP 119/59
[2017-04-06 17:00] VITALS: BP 126/60
[2017-04-06] MEDS: ENOXAPARIN SOD 30 MG/0.3 ML SYRINGE SC SCH (17:34)
[2017-04-06] MEDS: ATORVASTATIN 20 MG TAB PO SCH (21:47)
[2017-04-06] MEDS: TEMAZEPAM 15 MG CAP PO PRN (21:48)
[2017-04-06 22:39] VITALS: BP 140/65
[2017-04-07] MEDS: HYDROcodone-ACET 5/325MG TAB PO PRN ×3 (00:14→12:17)
[2017-04-07] MEDS: hydrALAZINE HCL 25 MG TAB PO SCH ×3 (05:31→21:47)
[2017-04-07] MEDS: cloNIDine HCL 0.1 MG TAB PO SCH ×3 (05:31→21:48)
[2017-04-07 05:38] VITALS: BP 143/63
[2017-04-07] MEDS: CALCIUM ACETATE 667 MG CAP PO SCH ×3 (08:19→18:27)
[2017-04-07] MEDS: ASPirin 81 mg TAB PO SCH (09:10)
[2017-04-07] MEDS: DOXAZOSIN MESYL 2 MG TAB PO SCH ×2 (09:12→21:47)
[2017-04-07] MEDS: LABETALOL HCL 200 MG TAB PO SCH ×2 (09:13→21:48)
[2017-04-07] MEDS: CITALOPRAM HYDROBR 20 MG TAB PO SCH (09:13)
[2017-04-07] MEDS: GABAPENTIN 300 MG CAP PO SCH (09:13)
[2017-04-07 09:14] VITALS: BP 149/70
[2017-04-07] MEDS: hydrOXYzine PAMOATE 25 MG CAP PO SCH ×2 (09:14→21:48)
[2017-04-07] MEDS: NIFEdipine ER 30 MG TAB PO SCH (09:14)
[2017-04-07] MEDS: PANTOPRAZOLE 40 MG TAB PO SCH (09:14)
[2017-04-07] MEDS: CALCITRIOL 0.25 MCG CAP PO SCH (09:14)
[2017-04-07] MEDS: NITROGLYCERIN 0.2MG/HR TOPICAL PATCH TD SCH (09:15)
[2017-04-07] MEDS ORDERED: EPOETIN ALFA 10,000 UNIT/1 ML VIAL IV ONE (09:15)
[2017-04-07] MEDS ORDERED: VANCOMYCIN PER PHARMACY 0 MG IV SCH (12:15)
[2017-04-07] MEDS ORDERED: LORazepam 2MG/ML-1ML VIAL IV ONE (12:15)
[2017-04-07] MEDS ORDERED: VANCOMYCIN 1GM/250ML D5W 250 ML IV ONE (12:45)
[2017-04-07 13:00] VITALS: BP 148/66
[2017-04-07 17:07] VITALS: BP 132/64
[2017-04-07] MEDS: ENOXAPARIN SOD 30 MG/0.3 ML SYRINGE SC SCH (18:27)
[2017-04-07] MEDS: HYDROmorphone HCL 2 MG/ML VL IV PRN (19:53)
[2017-04-07] MEDS: ATORVASTATIN 20 MG TAB PO SCH (21:48)
[2017-04-07 22:00] VITALS: BP 142/67
[2017-04-08] MEDS: HYDROmorphone HCL 2 MG/ML VL IV PRN ×4 (02:59→20:19)
[2017-04-08 05:00] VITALS: BP 132/71
[2017-04-08] MEDS: hydrALAZINE HCL 25 MG TAB PO SCH ×3 (05:31→21:25)
[2017-04-08] MEDS: cloNIDine HCL 0.1 MG TAB PO SCH ×3 (05:32→21:26)
[2017-04-08 05:37] LABS: Basophils # (auto) 0 uL; Basophils % (auto) 0.1 % (0.0-2.0); CONDITION Y; DEFINITIVE SEE PRINTOUT; Eosinophils # (auto) 0.2 uL; Eosinophils % (auto) 1.3 % (0.0-7.0); Hematocrit 25.7 % (36.0-46.0); Hemoglobin 8.4 g/dL (12.2-16.2); Lymphocytes # (auto) 0.9 uL; Lymphocytes % (auto) 7.1 % (10.0-50.0); Mean Corpuscular Hemoglobin 29.8 pg (28.0-32.0); Mean Corpuscular Hgb Conc. 32.8 g/dL (32.0-36.0); Mean Corpuscular Volume 90.8 fL (80.0-100.0); Mean Platelet Volume 8.2 fL (7.4-10.4); Monocytes # (auto) 1.5 uL; Monocytes % (auto) 11.5 % (0.0-12.0); Neutrophils # (auto) 10.3 uL; Platelet Count (auto) 288 10^3/uL (140-450); Red Cell Distribution Width 16.9 % (11.6-16.0); White Blood Cell 12.9 10^3/uL (4.4-10.8)
[2017-04-08 06:01] LABS: Calcium 8.6 mg/dL (8.5-10.1); Potassium 4.2 mmol/L (3.5-5.1)
[2017-04-08 06:12] LABS: BUN/Creatinine Ratio 7.6
[2017-04-08] MEDS: CALCIUM ACETATE 667 MG CAP PO SCH ×3 (08:09→18:09)
[2017-04-08 09:00] VITALS: BP 157/57
[2017-04-08] MEDS: DOXAZOSIN MESYL 2 MG TAB PO SCH ×2 (09:10→21:26)
[2017-04-08] MEDS: ASPirin 81 mg TAB PO SCH (09:10)
[2017-04-08] MEDS: CITALOPRAM HYDROBR 20 MG TAB PO SCH (09:10)
[2017-04-08] MEDS: GABAPENTIN 300 MG CAP PO SCH (09:11)
[2017-04-08] MEDS: LABETALOL HCL 200 MG TAB PO SCH ×2 (09:11→21:26)
[2017-04-08] MEDS: hydrOXYzine PAMOATE 25 MG CAP PO SCH ×2 (09:13→21:27)
[2017-04-08] MEDS: CALCITRIOL 0.25 MCG CAP PO SCH (09:13)
[2017-04-08] MEDS: NIFEdipine ER 30 MG TAB PO SCH (09:13)
[2017-04-08] MEDS: PANTOPRAZOLE 40 MG TAB PO SCH (09:13)
[2017-04-08] MEDS ORDERED: LIDOCAINE 2%HCL (LOCAL ANESTH.) INJ 20ML MDV ONE (11:34)
[2017-04-08] MEDS ORDERED: fentaNYL CITRATE 100 MCG/2 ML VL ONE (11:48)
[2017-04-08] MEDS ORDERED: MIDAZOLAM HCL 1MG/1ML-2 ML VIAL ONE (11:48)
[2017-04-08] MEDS ORDERED: HEPARIN SODIUM (PORCINE) 5000 UNITS/ML 1ML VIAL ONE (12:18)
[2017-04-08 13:00] VITALS: BP_SYST 127; BP_SYST 130; BP_DIAS 69; BP_DIAS 79
[2017-04-08] MEDS ORDERED: LORazepam 2MG/ML-1ML VIAL IV ONE (13:45)
[2017-04-08 17:06] VITALS: BP 135/58
[2017-04-08] MEDS: ENOXAPARIN SOD 30 MG/0.3 ML SYRINGE SC SCH (18:09)
[2017-04-08] MEDS: ATORVASTATIN 20 MG TAB PO SCH (21:26)
[2017-04-08 21:30] VITALS: BP 124/62
[2017-04-09] VITALS (7 sets, daily range): BP systolic 130–157; BP diastolic 47–88
[2017-04-09] MEDS: HYDROmorphone HCL 2 MG/ML VL IV PRN ×5 (00:22→21:56)
[2017-04-09] MEDS: cloNIDine HCL 0.1 MG TAB PO SCH ×3 (06:00→21:34)
[2017-04-09] MEDS: hydrALAZINE HCL 25 MG TAB PO SCH ×3 (06:00→21:34)
[2017-04-09 06:40] LABS: Basophils # (auto) 0 uL; Basophils % (auto) 0.1 % (0.0-2.0); CONDITION Y; Eosinophils # (auto) 0.3 uL; Eosinophils % (auto) 2.5 % (0.0-7.0); Hematocrit 27.3 % (36.0-46.0); Lymphocytes # (auto) 0.9 uL; Lymphocytes % (auto) 7.4 % (10.0-50.0); Mean Corpuscular Volume 91.1 fL (80.0-100.0); Mean Platelet Volume 7.9 fL (7.4-10.4); Monocytes # (auto) 1.2 uL; Monocytes % (auto) 10.2 % (0.0-12.0); Neutrophils # (auto) 9.5 uL; Neutrophils % (auto) 79.8 % (37.0-80.0); Platelet Count (auto) 342 10^3/uL (140-450); Red Cell Distribution Width 17.1 % (11.6-16.0); White Blood Cell 11.9 10^3/uL (4.4-10.8)
[2017-04-09 06:49] LABS: Calcium 9.2 mg/dL (8.5-10.1); Potassium 4.8 mmol/L (3.5-5.1)
[2017-04-09 06:52] LABS: BUN/Creatinine Ratio 8.5
[2017-04-09] MEDS: HYDROcodone-ACET 5/325MG TAB PO PRN (07:47)
[2017-04-09] MEDS ORDERED: EPOETIN ALFA 10,000 UNIT/1 ML VIAL IV ONE (08:00)
[2017-04-09] MEDS ORDERED: SODIUM CHL 0.9% 1000 ML BAG XX ONE (08:00)
[2017-04-09] MEDS ORDERED: CEFTRIAXONE SODIUM 2 GM in D5W 5% 50 ML IV ONE (10:45)
[2017-04-09] MEDS: CALCIUM ACETATE 667 MG CAP PO SCH ×3 (12:00→17:36)
[2017-04-09] MEDS: CITALOPRAM HYDROBR 20 MG TAB PO SCH (12:08)
[2017-04-09] MEDS: DOXAZOSIN MESYL 2 MG TAB PO SCH ×2 (12:08→21:34)
[2017-04-09] MEDS: ASPirin 81 mg TAB PO SCH (12:08)
[2017-04-09] MEDS: GABAPENTIN 300 MG CAP PO SCH (12:08)
[2017-04-09] MEDS: LABETALOL HCL 200 MG TAB PO SCH ×2 (12:09→21:36)
[2017-04-09] MEDS: hydrOXYzine PAMOATE 25 MG CAP PO SCH ×2 (12:09→21:35)
[2017-04-09] MEDS: CALCITRIOL 0.25 MCG CAP PO SCH (12:09)
[2017-04-09] MEDS: NIFEdipine ER 30 MG TAB PO SCH (12:09)
[2017-04-09] MEDS: PANTOPRAZOLE 40 MG TAB PO SCH (12:09)
[2017-04-09] MEDS: ENOXAPARIN SOD 30 MG/0.3 ML SYRINGE SC SCH (17:37)
[2017-04-09] MEDS ORDERED: VANCOMYCIN 500 MG in D5W 5% 100 ML IV ONE (20:00)
[2017-04-09] MEDS: ATORVASTATIN 20 MG TAB PO SCH (21:35)
[2017-04-10] MEDS: TEMAZEPAM 15 MG CAP PO PRN (00:26)
[2017-04-10] MEDS: HYDROmorphone HCL 2 MG/ML VL IV PRN ×5 (03:40→22:45)
[2017-04-10 05:40] VITALS: BP 124/56
[2017-04-10] MEDS: hydrALAZINE HCL 25 MG TAB PO SCH ×3 (05:57→22:29)
[2017-04-10] MEDS: cloNIDine HCL 0.1 MG TAB PO SCH ×3 (05:58→22:30)
[2017-04-10] MEDS: hydrOXYzine PAMOATE 25 MG CAP PO SCH ×3 (05:58→22:30)
[2017-04-10 06:35] LABS: Basophils # (auto) 0 uL; Basophils % (auto) 0.3 % (0.0-2.0); CONDITION Y; Eosinophils # (auto) 0.4 uL; Eosinophils % (auto) 4.5 % (0.0-7.0); Hematocrit 27.7 % (36.0-46.0); Hemoglobin 9.1 g/dL (12.2-16.2); Lymphocytes # (auto) 1.1 uL; Lymphocytes % (auto) 11.3 % (10.0-50.0); Mean Corpuscular Hemoglobin 29.6 pg (28.0-32.0); Mean Corpuscular Hgb Conc. 32.7 g/dL (32.0-36.0); Mean Corpuscular Volume 90.6 fL (80.0-100.0); Mean Platelet Volume 8.1 fL (7.4-10.4); Monocytes % (auto) 10.3 % (0.0-12.0); Neutrophils # (auto) 7.1 uL; Neutrophils % (auto) 73.6 % (37.0-80.0); Platelet Count (auto) 340 10^3/uL (140-450); Red Cell Distribution Width 16.9 % (11.6-16.0); White Blood Cell 9.7 10^3/uL (4.4-10.8)
[2017-04-10 06:45] LABS: INR 1.21 (0.9-1.15); Partial Thromboplastin Time 39.2 sec (22.64-33.71)
[2017-04-10 06:48] LABS: Prothrombin Time 13.2 sec (9.37-12.3)
[2017-04-10 07:15] LABS: Albumin 2.1 g/dL (3.4-5.0); Calcium 8.8 mg/dL (8.5-10.1)
[2017-04-10 07:19] LABS: Bilirubin, Total 0.8 mg/dL (0.2-1.0); Total Protein 7.3 g/dL (6.4-8.2)
[2017-04-10 08:00] VITALS: BP 146/59
[2017-04-10] MEDS: CALCIUM ACETATE 667 MG CAP PO SCH ×3 (08:00→17:14)
[2017-04-10] MEDS ORDERED: ceFAZolin 1GM/50ML D5W 50 ML IV ONE (08:15)
[2017-04-10 09:00] VITALS: BP 146/59
[2017-04-10] MEDS ORDERED: fentaNYL CITRATE 100 MCG/2 ML VL ONE (09:30)
[2017-04-10] MEDS ORDERED: MIDAZOLAM HCL 1MG/1ML-2 ML VIAL ONE (09:30)
[2017-04-10] MEDS ORDERED: PROPOFOL 10 MG/ML 20 ML IV ONE (09:32)
[2017-04-10] MEDS ORDERED: ONDANSETRON HCL 4 MG/2 ML VIAL IV ONE (10:15)
[2017-04-10] MEDS ORDERED: ePHEDrine SULFATE 50 MG/ML AMP IV PRN (10:15)
[2017-04-10] MEDS ORDERED: hydrALAZINE HCL 20 MG/ML VL IV PRN (10:15)
[2017-04-10] MEDS ORDERED: fentaNYL CITRATE 100 MCG/2 ML VL IV ONE (11:00)
[2017-04-10] MEDS: CEFTRIAXONE SODIUM 2 GM in D5W 5% 50 ML IV SCH (11:11)
[2017-04-10] MEDS: PANTOPRAZOLE 40 MG TAB PO SCH (11:12)
[2017-04-10] MEDS: CALCITRIOL 0.25 MCG CAP PO SCH (11:12)
[2017-04-10] MEDS: GABAPENTIN 300 MG CAP PO SCH (11:12)
[2017-04-10] MEDS: CITALOPRAM HYDROBR 20 MG TAB PO SCH (11:12)
[2017-04-10] MEDS: ASPirin 81 mg TAB PO SCH (11:13)
[2017-04-10] MEDS: DOXAZOSIN MESYL 2 MG TAB PO SCH ×2 (11:14→22:29)
[2017-04-10] MEDS: LABETALOL HCL 200 MG TAB PO SCH ×2 (11:14→22:29)
[2017-04-10] MEDS: NIFEdipine ER 30 MG TAB PO SCH (11:15)
[2017-04-10 13:00] VITALS: BP 145/61
[2017-04-10 17:00] VITALS: BP 129/55
[2017-04-10] MEDS: ENOXAPARIN SOD 30 MG/0.3 ML SYRINGE SC SCH (17:14)
[2017-04-10 22:00] VITALS: BP 145/65
[2017-04-10] MEDS: ATORVASTATIN 20 MG TAB PO SCH (22:28)
[2017-04-11] MEDS: TEMAZEPAM 15 MG CAP PO PRN (00:42)
[2017-04-11 05:00] VITALS: BP 143/71
[2017-04-11] MEDS: HYDROmorphone HCL 2 MG/ML VL IV PRN ×5 (05:14→21:38)
[2017-04-11] MEDS: hydrOXYzine PAMOATE 25 MG CAP PO SCH ×3 (05:24→21:38)
[2017-04-11] MEDS: hydrALAZINE HCL 25 MG TAB PO SCH ×3 (05:24→21:38)
[2017-04-11] MEDS: cloNIDine HCL 0.1 MG TAB PO SCH ×3 (05:24→21:40)
[2017-04-11 06:12] LABS: Basophils # (auto) 0 uL; Basophils % (auto) 0.3 % (0.0-2.0); CONDITION Y; Eosinophils # (auto) 0.6 uL; Eosinophils % (auto) 5.6 % (0.0-7.0); Hematocrit 27.6 % (36.0-46.0); Hemoglobin 9.2 g/dL (12.2-16.2); Lymphocytes # (auto) 1.2 uL; Lymphocytes % (auto) 11.6 % (10.0-50.0); Mean Corpuscular Hemoglobin 29.8 pg (28.0-32.0); Mean Corpuscular Hgb Conc. 33.3 g/dL (32.0-36.0); Mean Corpuscular Volume 89.5 fL (80.0-100.0); Mean Platelet Volume 7.7 fL (7.4-10.4); Monocytes % (auto) 9.2 % (0.0-12.0); Neutrophils # (auto) 7.8 uL; Neutrophils % (auto) 73.3 % (37.0-80.0); Platelet Count (auto) 370 10^3/uL (140-450); Red Cell Distribution Width 16.4 % (11.6-16.0); White Blood Cell 10.7 10^3/uL (4.4-10.8)
[2017-04-11 06:22] LABS: BUN/Creatinine Ratio 8.6; Calcium 8.7 mg/dL (8.5-10.1); Potassium 4.5 mmol/L (3.5-5.1)
[2017-04-11 08:00] VITALS: BP 139/68
[2017-04-11] MEDS: CALCIUM ACETATE 667 MG CAP PO SCH ×3 (08:00→17:37)
[2017-04-11] MEDS ORDERED: EPOETIN ALFA 10,000 UNIT/1 ML VIAL IV ONE (08:00)
[2017-04-11] MEDS ORDERED: SODIUM CHL 0.9% 1000 ML BAG XX ONE (08:00)
[2017-04-11 09:00] VITALS: BP 139/68
[2017-04-11] MEDS: CEFTRIAXONE SODIUM 2 GM in D5W 5% 50 ML IV SCH (11:22)
[2017-04-11] MEDS: CITALOPRAM HYDROBR 20 MG TAB PO SCH (11:23)
[2017-04-11] MEDS: LABETALOL HCL 200 MG TAB PO SCH ×2 (11:23→21:39)
[2017-04-11] MEDS: GABAPENTIN 300 MG CAP PO SCH (11:23)
[2017-04-11] MEDS: ASPirin 81 mg TAB PO SCH (11:24)
[2017-04-11] MEDS: PANTOPRAZOLE 40 MG TAB PO SCH (11:24)
[2017-04-11] MEDS: CALCITRIOL 0.25 MCG CAP PO SCH (11:24)
[2017-04-11] MEDS: DOXAZOSIN MESYL 2 MG TAB PO SCH ×2 (11:24→21:39)
[2017-04-11] MEDS: NIFEdipine ER 30 MG TAB PO SCH (11:25)
[2017-04-11 13:00] VITALS: BP 145/78
[2017-04-11 16:28] VITALS: BP 128/54
[2017-04-11] MEDS ORDERED: VANCOMYCIN 500 MG in D5W 5% 100 ML IV ONE (17:00)
[2017-04-11] MEDS: ENOXAPARIN SOD 30 MG/0.3 ML SYRINGE SC SCH (17:37)
[2017-04-11] MEDS: ATORVASTATIN 20 MG TAB PO SCH (21:38)
[2017-04-12 01:24] VITALS: BP 166/65
[2017-04-12 01:25] VITALS: BP 166/65
== END 2017-04-12 01:25 | disposition short-term general hospital (02) | DRG 981 ==
LOC: EDBD 16:19 → ER 16:29 → TELE 16:30 → TELE-WESTW 21:27
PROVIDERS: ADMIT Internal Medicine; ATTEND Internal Medicine
PROC: 5A1D60Z (ICD-10-PCS; principal; 2017-04-04)
PROC: 02HV33Z Insertion of Infusion Device into Superior Vena Cava, Percutaneous Approach (ICD-10-PCS; 2017-04-04)
PROC: 0JH63XZ Insertion of Tunneled Vascular Access Device into Chest Subcutaneous Tissue and Fascia, Percutaneous Approach (ICD-10-PCS; 2017-04-04)
PROC: 05PY33Z Removal of Infusion Device from Upper Vein, Percutaneous Approach (ICD-10-PCS; 2017-04-04)
PROC: B5131ZA Fluoroscopy of Right Jugular Veins using Low Osmolar Contrast, Guidance (ICD-10-PCS; 2017-04-04)
PROC: 0WPG03Z Removal of Infusion Device from Peritoneal Cavity, Open Approach (ICD-10-PCS; 2017-04-10)
DX: T80.211A Bloodstream infection due to central venous catheter, initial encounter (principal); A41.01 Sepsis due to Methicillin susceptible Staphylococcus aureus; N18.6 End stage renal disease; I50.33 Acute on chronic diastolic (congestive) heart failure; E44.0 Moderate protein-calorie malnutrition; I13.2 Hypertensive heart and chronic kidney disease with heart failure and with stage 5 chronic kidney disease, or end stage renal disease; M46.22 Osteomyelitis of vertebra, cervical region; E11.22 Type 2 diabetes mellitus with diabetic chronic kidney disease; F41.9 Anxiety disorder, unspecified; I25.10 Atherosclerotic heart disease of native coronary artery without angina pectoris; J44.9 Chronic obstructive pulmonary disease, unspecified; M81.0 Age-related osteoporosis without current pathological fracture; Y84.8 Other medical procedures as the cause of abnormal reaction of the patient, or of later complication, without mention of misadventure at the time of the procedure; Z82.49 Family history of ischemic heart disease and other diseases of the circulatory system; I25.2 Old myocardial infarction; Z99.2 Dependence on renal dialysis; Z83.3 Family history of diabetes mellitus; Z90.49 Acquired absence of other specified parts of digestive tract; Z98.51 Tubal ligation status; D63.8 Anemia in other chronic diseases classified elsewhere; E11.21 Type 2 diabetes mellitus with diabetic nephropathy; Z98.61 Coronary angioplasty status; Z71.89 Other specified counseling; E11.65 Type 2 diabetes mellitus with hyperglycemia; Z68.26 Body mass index [BMI] 26.0-26.9, adult
CPT/HCPCS: 36415; 71010; 72128; 72141; 72146; 77002; 80048; 80053; 80202; 82550; 82962; 83036; 83735; 83880; 84443; 84484; 85025; 85379; 85610; 85652; 85730; 86141; 87040; 87077; 87081; 87147; 87186; 90935; 93005; 99152; J0690; J0696; J0885; J1642; J1815; J2250; J2704; J7060

== ENCOUNTER 2017-10-03 17:37 | Inpatient (IN) | payer MEDICARE, MEDICAID ==
[~2017-10-03] VITALS: Ht 160 cm; Wt 69.9 kg
[~2017-10-03 17:37] MED LIST changes: -ASPI81CH43 PO; +CALC667T2 PO; +CAR125T PO; -CITA-77 PO; -DOXA1TAB42; -FURO80TA3 PO; -GABA-497 PO; +GABA300C10 PO; -Glyburide; -HYDR-2652 PO; +HYDR-4683 PO; +HYDR50TA15 PO; -LAB200T PO; +LORA-205 PO; +LOSA100T27 PO; -MET500T PO; +SEVE800T8 PO; +TRIO1TP EX
[2017-10-03 19:40] LABS: Basophils # (auto) 0.1 uL; Eosinophils # (auto) 0.4 uL; Eosinophils % (auto) 6.5 % (0.0-7.0); Lymphocytes # (auto) 0.7 uL; Monocytes # (auto) 0.5 uL; Monocytes % (auto) 8.8 % (0.0-12.0); Neutrophils # (auto) 4.4 uL
[2017-10-03 19:41] LABS: Basophils % (auto) 1.1 % (0.0-2.0); Hematocrit 21.5 % (36.0-46.0); Lymphocytes % (auto) 12.1 % (10.0-50.0); Mean Corpuscular Hemoglobin 32.1 pg (28.0-32.0); Mean Corpuscular Hgb Conc. 32.6 g/dL (32.0-36.0); Mean Corpuscular Volume 98.4 fL (80.0-100.0); Neutrophils % (auto) 71.5 % (37.0-80.0); Platelet Count (auto) 183 10^3/uL (140-450); Red Blood Cells 2.18 10^6/uL (4.0-5.20); Red Cell Distribution Width 18.5 % (11.8-14.3); White Blood Cell 6.1 10^3/uL (4.4-10.8)
[2017-10-03 19:58] LABS: BUN/Creatinine Ratio 10.1; Bilirubin, Total 0.8 mg/dL (0.2-1.0); Calcium 8.2 mg/dL (8.5-10.1); Potassium 4.5 mmol/L (3.5-5.1); Total Protein 7.3 g/dL (6.4-8.2)
[2017-10-03] MEDS ORDERED: cloNIDine HCL 0.1 MG TAB PO ONE (20:00)
[2017-10-03] MEDS ORDERED: HYDROcodone-ACET 10/325MG TAB PO ONE (20:15)
[2017-10-03] MEDS ORDERED: ENOXAPARIN SOD 60 MG/0.6 ML SYRINGE SC ONE (20:15)
[2017-10-03] MEDS ORDERED: CLON0.1D TD (20:26)
[2017-10-03] MEDS ORDERED: LORA-655 PO (20:26)
[2017-10-03] MEDS ORDERED: cloNIDine HCL 0.1 MG TAB PO PRN (21:30)
[2017-10-03] MEDS ORDERED: ALBUTEROL SULF 2.5 MG/0.5ML(0.5%) NEB SOLN NEB PRN (21:30)
[2017-10-03] MEDS ORDERED: LABETALOL HCL 5 MG/ML ML 20ML VIAL IV ONE (21:30)
[2017-10-03] MEDS ORDERED: TEMAZEPAM 15 MG CAP PO PRN (21:30)
[2017-10-03] MEDS ORDERED: IPRATROPIUM BROM 0.5 MG/2.5ML INH SOL NEB PRN (21:30)
[2017-10-03] MEDS ORDERED: NITROGLYCERIN 0.4 MG SL TAB SL PRN (21:30)
[2017-10-03] MEDS ORDERED: ACETAMINOPHEN 325 MG TAB PO PRN (21:30)
[2017-10-03] MEDS ORDERED: DEXTROSE (50%) 50ML SYRG IV PRN (21:30)
[2017-10-03] MEDS: ATORVASTATIN 20 MG TAB PO SCH (21:52)
[2017-10-03] MEDS: hydrALAZINE HCL 25 MG TAB PO SCH (21:55)
[2017-10-03] MEDS: CARVEDILOL 12.5 MG TAB PO SCH (21:55)
[2017-10-03] MEDS: ONDANSETRON HCL 4 MG/2 ML VIAL IV PRN (23:01)
[2017-10-03] MEDS: MORPHINE SULFATE 10 MG/ML INJ 1ML SDV IV PRN (23:02)
[2017-10-04] VITALS (15 sets, daily range): BP systolic 112–154; BP diastolic 41–79
[2017-10-04] MEDS: ACCU-CHEK COMFORT CURVE STRIP VI SCH ×5 (01:35→23:48)
[2017-10-04] MEDS: HYDROcodone-ACET 5/325MG TAB PO PRN ×3 (02:51→10:30)
[2017-10-04] MEDS: MORPHINE SULFATE 10 MG/ML INJ 1ML SDV IV PRN (04:31)
[2017-10-04] MEDS: InsuLIN REG 1unit/0.01ml Soln (100units/ml) SC SCH ×5 (06:00→23:48)
[2017-10-04 06:56] LABS: Basophils # (auto) 0.1 uL; Eosinophils # (auto) 0.6 uL; Hemoglobin 7.6 g/dL (12.2-16.2); Lymphocytes # (auto) 0.7 uL; Monocytes # (auto) 0.5 uL
[2017-10-04 06:59] LABS: Basophils % (auto) 1.4 % (0.0-2.0); Eosinophils % (auto) 10.9 % (0.0-7.0); Hematocrit 23.1 % (36.0-46.0); Lymphocytes % (auto) 12.8 % (10.0-50.0); Mean Corpuscular Hemoglobin 32.4 pg (28.0-32.0); Mean Corpuscular Hgb Conc. 32.9 g/dL (32.0-36.0); Mean Corpuscular Volume 98.5 fL (80.0-100.0); Monocytes % (auto) 10.2 % (0.0-12.0); Neutrophils # (auto) 3.4 uL; Neutrophils % (auto) 64.7 % (37.0-80.0); Nucleated Red Blood Cells % 0.2 %; Platelet Count (auto) 173 10^3/uL (140-450); Red Blood Cells 2.34 10^6/uL (4.0-5.20); White Blood Cell 5.2 10^3/uL (4.4-10.8)
[2017-10-04 07:00] LABS: Red Cell Distribution Width 20.6 % (11.8-14.3)
[2017-10-04 07:11] LABS: Albumin 2.9 g/dL (3.4-5.0); BUN/Creatinine Ratio 9.4; Bilirubin, Total 0.8 mg/dL (0.2-1.0); Calcium 8.1 mg/dL (8.5-10.1); Potassium 4.7 mmol/L (3.5-5.1)
[2017-10-04] MEDS: PANTOPRAZOLE 40 MG TAB PO SCH (10:29)
[2017-10-04] MEDS: CARVEDILOL 12.5 MG TAB PO SCH ×2 (10:30→22:23)
[2017-10-04] MEDS: GABAPENTIN 300 MG CAP PO SCH (10:30)
[2017-10-04] MEDS: hydrALAZINE HCL 25 MG TAB PO SCH ×2 (10:31→22:00)
[2017-10-04] MEDS: NIFEdipine ER 30 MG TAB PO SCH (10:31)
[2017-10-04] MEDS: HEPARIN SODIUM (PORCINE) 5000 UNITS/ML 1ML VIAL SC SCH ×2 (10:35→22:26)
[2017-10-04] MEDS: LOSARTAN POTASSIUM 50 MG TAB PO SCH (10:38)
[2017-10-04] MEDS: HYDROmorphone HCL 2 MG/ML VL IV PRN ×3 (13:32→22:24)
[2017-10-04] MEDS: ONDANSETRON HCL 4 MG/2 ML VIAL IV PRN ×2 (13:32→20:01)
[2017-10-04] MEDS ORDERED: TEMAZEPAM 15 MG CAP PO PRN (14:00)
[2017-10-04] MEDS ORDERED: EPOETIN ALFA 10,000 UNIT/1 ML VIAL IV ONE (15:45)
[2017-10-04] MEDS ORDERED: SODIUM CHL 0.9% 1000 ML BAG XX ONE (15:45)
[2017-10-04] MEDS: ATORVASTATIN 20 MG TAB PO SCH (22:21)
[2017-10-05] MEDS: HYDROmorphone HCL 2 MG/ML VL IV PRN ×3 (02:32→10:51)
[2017-10-05 04:47] VITALS: BP 151/54
[2017-10-05] MEDS: InsuLIN REG 1unit/0.01ml Soln (100units/ml) SC SCH (06:00)
[2017-10-05] MEDS: ACCU-CHEK COMFORT CURVE STRIP VI SCH (06:23)
[2017-10-05 06:54] LABS: Basophils # (auto) 0.1 uL; Hemoglobin 8.4 g/dL (12.2-16.2); Lymphocytes # (auto) 0.7 uL; Monocytes # (auto) 0.5 uL
[2017-10-05 06:57] LABS: Eosinophils # (auto) 0.6 uL; Eosinophils % (auto) 10.7 % (0.0-7.0); Hematocrit 25.5 % (36.0-46.0); Lymphocytes % (auto) 12.2 % (10.0-50.0); Mean Corpuscular Hemoglobin 31.7 pg (28.0-32.0); Mean Corpuscular Volume 95.9 fL (80.0-100.0); Monocytes % (auto) 9.2 % (0.0-12.0); Neutrophils % (auto) 66.9 % (37.0-80.0); Nucleated Red Blood Cells % 0.2 %; Platelet Count (auto) 139 10^3/uL (140-450); Red Blood Cells 2.66 10^6/uL (4.0-5.20); Red Cell Distribution Width 19.7 % (11.8-14.3); White Blood Cell 5.9 10^3/uL (4.4-10.8)
[2017-10-05 07:01] LABS: BUN/Creatinine Ratio 9.1; Bilirubin, Total 0.7 mg/dL (0.2-1.0); Phosphorus 6.6 mg/dL (2.5-4.90); Potassium 5.2 mmol/L (3.5-5.1)
[2017-10-05 09:00] VITALS: BP 161/80
[2017-10-05] MEDS: PANTOPRAZOLE 40 MG TAB PO SCH (10:47)
[2017-10-05] MEDS: GABAPENTIN 300 MG CAP PO SCH (10:48)
[2017-10-05] MEDS: NIFEdipine ER 30 MG TAB PO SCH (10:48)
[2017-10-05] MEDS: LOSARTAN POTASSIUM 50 MG TAB PO SCH (10:49)
[2017-10-05] MEDS: CARVEDILOL 12.5 MG TAB PO SCH (10:50)
[2017-10-05] MEDS: hydrALAZINE HCL 25 MG TAB PO SCH (10:51)
[2017-10-05] MEDS: ONDANSETRON HCL 4 MG/2 ML VIAL IV PRN (10:52)
[2017-10-05] MEDS: HEPARIN SODIUM (PORCINE) 5000 UNITS/ML 1ML VIAL SC SCH (10:57)
[2017-10-05 11:37] VITALS: BP 161/80
[2017-10-05] MEDS ORDERED: SEVELAMER 800 MG TAB PO SCH (12:00)
[2017-10-05 13:00] VITALS: BP 152/51
== END 2017-10-05 13:27 | disposition home or self-care (01) | DRG 291 ==
LOC: ER 17:37 → TELE 17:38 → TELE-WESTW 22:08
PROVIDERS: ADMIT Nurse Practitioner; ATTEND Nurse Practitioner
PROC: 5A1D70Z Performance of Urinary Filtration, Intermittent, Less than 6 Hours Per Day (ICD-10-PCS; principal; 2017-10-04)
PROC: 30233N1 Transfusion of Nonautologous Red Blood Cells into Peripheral Vein, Percutaneous Approach (ICD-10-PCS; 2017-10-04)
DX: I13.2 Hypertensive heart and chronic kidney disease with heart failure and with stage 5 chronic kidney disease, or end stage renal disease (principal); N18.6 End stage renal disease; E11.22 Type 2 diabetes mellitus with diabetic chronic kidney disease; J44.1 Chronic obstructive pulmonary disease with (acute) exacerbation; E44.1 Mild protein-calorie malnutrition; D63.8 Anemia in other chronic diseases classified elsewhere; E78.5 Hyperlipidemia, unspecified; R06.03 Acute respiratory distress; M25.551 Pain in right hip; I50.9 Heart failure, unspecified; I25.10 Atherosclerotic heart disease of native coronary artery without angina pectoris; Z79.2 Long term (current) use of antibiotics; Z82.49 Family history of ischemic heart disease and other diseases of the circulatory system; Z82.5 Family history of asthma and other chronic lower respiratory diseases; Z83.3 Family history of diabetes mellitus; Z99.2 Dependence on renal dialysis; Z79.4 Long term (current) use of insulin; I25.2 Old myocardial infarction; Z90.49 Acquired absence of other specified parts of digestive tract; Z95.5 Presence of coronary angioplasty implant and graft
CPT/HCPCS: 36415; 71045; 72192; 73502; 80053; 82962; 84100; 84484; 85025; 86850; 86900; 86901; 86920; 87081; 90935; 93005; 93306; 94640; 96372; J0885; J1642; J2405